=== PATIENT | female | born 1985 | race Caucasian/White ===

== ENCOUNTER 2020-05-30 20:32 | Emergency (ER) | payer BC ==
[~2020-05-30] VITALS: Ht 175.3 cm; Wt 65.8 kg
[2020-05-30 20:33] VITALS: BP 132/82
[2020-05-30] MEDS ORDERED: XYZAL5 MG PO (20:35)
[2020-05-30] MEDS ORDERED: SINGULAIR 10 MG10 MG PO (20:36)
[2020-05-30] MEDS ORDERED: CLEOCIN HCL150 MG PO (20:45)
[2020-05-30] MEDS ORDERED: DOXYCYCLINE 10100 MG PO (20:45)
== END 2020-05-30 21:45 | disposition home or self-care (01) ==
LOC: ER 20:32
DX: S61.214A Laceration without foreign body of right ring finger without damage to nail, initial encounter (principal); Z79.899 Other long term (current) drug therapy; Z88.1 Allergy status to other antibiotic agents; W54.0XXA Bitten by dog, initial encounter; Y93.89 Activity, other specified; Y92.89 Other specified places as the place of occurrence of the external cause; Y99.8 Other external cause status